=== PATIENT | female | born 2000 | race Caucasian/White ===

== ENCOUNTER → 2021-07-01 | Outpatient (CLI) | payer BC ==
--- NOTE | 2021-07-01 08:19 | Diagnostic Imaging Report ---
PROCEDURE: US Abdomen, limited. TECHNIQUE: Multiple realtime grayscale images were obtained over the abdomen in various projections. INDICATION: Right upper quadrant pain. Liver is normal size at 16 cm. Portal vein is patent and shows normal direction of flow. No discrete liver mass is identified. Gallbladder is without stones or sludge. There is no wall thickening or biliary duct dilatation. Pancreas is obscured. The proximal aorta is obscured. Mid and distal aorta are normal caliber. IVC is patent. Right kidney is without calculi or hydronephrosis. There is no ascites. IMPRESSION: Essentially unremarkable right upper quadrant ultrasound. There is no evidence of cholelithiasis or acute cholecystitis. Dictated by: Dictated on workstation # [id number]
== END ==
LOC: RAD 07:00
PROVIDERS: ATTEND Nurse Practitioner Community Health
DX: R10.11 Right upper quadrant pain (principal)
CPT/HCPCS: 76705